=== PATIENT | male | born 1965 | race Caucasian/White ===

== ENCOUNTER → 2018-10-27 | Outpatient (CLI) | payer OTHER ==
--- NOTE | 2018-10-27 16:58 | RAD ---
RENAL COMPLETE BILATERAL History: Microscopic hematuria Comparison: None. Findings: Multiple sonographic images of the kidneys and urinary bladder are symmetric. Right kidney measured 10.7 x 5.2 x 6.2 cm. Left kidney measured 11.7 x 6 x 6 cm. There is no hydronephrosis of either kidney. Ureteral jets are seen bilaterally in the urinary bladder lumen. There is a small exophytic hypoechoic lesion of the inferior left kidney about 0.7 x 0.6 x 0.9 cm in size. Impression: 1. There is no hydronephrosis of either kidney. There is a small exophytic hypoechoic lesion of the inferior left kidney, most likely a small cyst. Electronically signed by: Cristian Kumar MD (10/27/2018 4:55 PM) [id number]
== END | disposition home or self-care (01) ==
LOC: US 14:59
PROVIDERS: ATTEND Nurse Practitioner Family
DX: N28.89 Other specified disorders of kidney and ureter (principal); R31.29 Other microscopic hematuria
CPT/HCPCS: 76770